=== PATIENT | female | born 1975 | race Caucasian/White ===

== ENCOUNTER 2025-08-12 12:45 | Outpatient (AMB) | payer OTHER, SELFPAY ==
[2025-08-12 13:00] VITALS: BMI 32.9
--- NOTE | 2025-08-12 13:00 | A.PHYSOV_ITS ---
Vital Signs 08/12/25 13:00 Height 5 ft 7 in Weight 210 lb BMI 32.9 Intake Visit Reasons: eval for hip injection Intake Note: Patient is a 49 year old female here today for right hip pain. Still Cleaner Required: No Allergies Seasonal Allergies Allergy (Unknown, Verified 08/12/25 12:59) Unknown HPI Comments Details: History of Present Illness The patient is a 49 year old female presenting for follow-up of recurrent right hip pain. She received a right hip injection in January which provided 90% reduction relief for approximately 3-4 months, but the pain has since returned. Her x-rays indicate mild arthritis of the hip. Patient has been performing her physician directed home exercise plan and using her medications as prescribed. Pain Description - Location: The patient reports pain in her right hip. - Radiation: The pain radiates slightly into the posterior thigh. - Quality: The pain is the same as what she experienced previously. - Severity: She rates her current pain as an 8 on a 0-10 scale. - Functional Impact: The patient reports she can still function in her daily life, but some activities are a struggle. - Relieving Factors: A previous hip injection in January provided relief for 3-4 months. Results - Imaging: X-ray of the hip shows mild arthritis. PFS Surgical History H/O: knee surgery Social History Alcohol intake: current Alcohol intake frequency: holidays/special occasions only Patient Tobacco Use Status: Never used Tobacco Use of substances other than those prescribed or required for medical reasons: No Current occupational status: employed Review of Systems Narrative Review of Systems - Musculoskeletal: Reports right hip pain with some radiation to the posterior thigh. Physical Exam Exam Exam: Physical Exam Lumbar Spine: Examination of her lumbar spine, there is no visible swelling or deformity. She is nontender to palpation. Full range of motion. Special Tests: Lhermittes sign was negative Heel Toe walk is normal Left straight leg raise: Negative Right straight leg raise: Negative Special tests Suzanne test is negative Ganslen's test is negative SI Joint compression test negative Reg test negative Piriformis stretch is negative Lower Extremities: Limited range of motion in external hip rotation as well as abduction, reproducible with pain. Neuro: Sensation: Intact to lower extremities bilaterally Strength L2 (Psoas): 5/5 on the left and 5/5 on the right. L3 (Quads): 5/5 on the left and 5/5 on the right. L4 (Ant tibialis): 5/5 on the left and 5/5 on the right. L5 (EHL) 5/5 on the left and 5/5 on the right. S1 (Gastroc): 5/5 on the left and 5/5 on the right. DTR L4: (Patellar) Left 2 Right 2 S1: (Achilles) Left 2 Right 2 Babinski Downgoing No pathologic clonus. No involuntary movement. Vital Signs: BMI result Body Mass Index 32.9 Assessment & Plan Assessment & Plan (1) Osteoarthritis of right hip: Code(s): M16.11 - Unilateral primary osteoarthritis, right hip Category: Medical Qualifiers: Osteoarthritis type: primary Qualified Code(s): M16.11 - Unilateral primary osteoarthritis, right hip Plan Pain Management - Analgesia: The patient's pain is currently an 8 out of 10. - Analgesia: A previous hip injection provided 3-4 months of relief. - Activities of Daily Living: The patient reports she can still function with d aily activities, though some are a struggle. Plan Patient was informed and verbally consented to the use of an ambient scribe for clinic note documentation during this visit. 1. Right Hip Pain The patient's right hip pain has returned after a previous injection in January provided relief for 3-4 months. Her current pain is 8/10, and while x-rays show mild arthritis, it is suspected that the condition may be more advanced than imaging suggests. The plan is to repeat the right hip injection, which the patient is agreeable to. An order will be placed for the injection to be performed by Dr. Walsh, and the office will handle insurance authorization. A discussion was had regarding a future MRI if injections become ineffective, but this will be held off on as long as the injections provide reasonable pain control. A follow-up visit will be scheduled for 3 weeks post-procedure, which the patient can cancel if she is feeling 80-90% better. Discussion Notes I discussed with the patient that her right hip pain has returned following her last injection in January, which gave her 3-4 months of good relief. I explained that while her x-rays show only mild arthritis, I suspect the condition may be more advanced. We agreed to repeat the right hip injection, as it was effective previously. I explained the possibility of needing an MRI in the future if the injections stop working, which would be to evaluate for surgery, such as a hip replacement. However, I advised that as long as the injections provide reasonable pain control, we can defer the MRI. I informed her that my office will place the order for the injection, obtain insurance authorization, and then she will be contacted to schedule the procedure. I also explained that a follow-up visit will be scheduled for three weeks after the procedure, but she can cancel it if she is feeling significantly better to avoid an unnecessary appointment. The patient understood the plan and confirmed the risks were the same as her previo us injection, stating she had no further questions. Patient Instructions - We will schedule you for another injection in your right hip to help manage your pain. - Our office will contact your insurance company for approval and then call you to set up the appointment for your injection. - You will have a follow-up appointment scheduled for three weeks after your injection. - If your pain is almost completely gone (80-90% better) after the injection, you can call our office to cancel this follow-up appointment. - We may consider getting an MRI scan of your hip in the future if the injections no longer provide relief. Coding Level of Care Code Est Pt Level 3 (58029) Diagnoses Primary osteoarthritis of right hip M16.11 Osteoarthritis type: primary
--- OUTSIDE RECORDS SUMMARY | 2025-08-12 14:21 | XMS_ITS | Clinical Summary ---
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 - Oral Active ARIPiprazole (ABILIFY) 15 mg tablet Take 1 Tablet by mouth daily. - Oral Active sertraline (ZOLOFT) 50 mg tablet Take 1 Tablet by mouth daily. - Oral Active cloNIDine (CATAPRES) 0.1 mg tablet Take 1 Tablet by mouth 2 times daily as needed. - Oral Active norgestimate-eth inyl estradioL (Estarylla) 0.25-0.035 mg per tablet TAKE 1 TABLET BY MOUTH 1 TIME EACH DAY 28 tablet 12 04/24/2025 Active Active Problems Problem Noted Date Diagnosed Date Rhinitis, allergic 06/23/2024 Major depression with psychotic features 024 Anxiety 06/23/2024 Seasonal allergies 06/23/2024 Obesity (BMI 30-39.9) 06/23/2024 Breast cyst 06/23/2024 Immunizations Immunization Administration Dates Next Due Influenza trivalent, with pr eservative (Fluzone; Afluria) 6mo and older 07/18/2021 Influenza, live, intranasal, trivalent (FluMist) 2yo to less than 50yo 05/30/2016,06/19/2014 Moderna SARS-CoV-2 COVID-19, mRNA, LNP-S, preservative free 07/18/2021,01/05/2021,12/08/2020 Tdap Tetanus diptheria acell ular pertussis (Boostrix; Adacel) 7yo and older 09/01/2014 Surgical History Surgery Date Site/Laterality Comments KNEE SURGERY Left PROCEDURE: HISTORICAL KNEE SURGERY; COMMENT: 2 procedures on left, 1 on right COLONOSCOPY 09/04/2016 PROCEDURE: HISTORICAL COLONOSCOPY; COMMENT: Dr. [email or web address]; normal examination. BREAST BIOPSY 2019 Left PROCEDURE: BX BREAST; PERC NEEDLE CORE W/IMAG GUID; COMMENT: lt breast bx-benign Medical History Medical History Date Comments Allergic rhinitis, cause unspecified 04/30/2007 DX:Allergic rhinitis, cause unspecified Family History Medical History Relation Name Comments Other: Other Father mental health i ssues Brain cancer Maternal Grandmother Other: Other Mother heart problems Brain cancer Other maternal side o f the family Other: heart problem Paternal Grandfather Breast cancer Neg Hx Cervical cancer Neg Hx Diabetes Neg Hx Heart attack Neg Hx Ovarian cancer Neg Hx Uterine cancer Neg Hx Relation Name Status Comments Brother 1 Alive Brother 2 Alive Brother 3 Alive Daughter Alive Father Alive Maternal Grandfather Maternal Grandmother Mother Alive Other Paternal Grandfather Paternal Grandmother Sister 1 Alive Sister 2 Alive Sister 3 Alive Son Alive Social History Tobacco Use Types Packs/Day Years Used Date Smoking Tobacco: Former Cigarettes 0 Q uit: 04/21/2016 Smokeless Tobacco: Former Tobacco Cessation:Counseling Given: Not Answered Alcohol Use Standard Drinks/Week Comments Yes 2 (1 standard drink = 0.6 oz pur e alcohol) Housing Instability Answer Date Recorde d Are you worried that in the next 2 months you may not have stable housing? No 04/23/2025 Food Access & Nutrition Answer Date Rec orded Do you have access to a vari ety of food including fruits and vegetables? Yes 04/23/2025 Access to Healthcare Answer Date Record ed Within the last 3 months, ho darek many times did you visit the emergency department for your medical care? 0 04/23/2025 Health Literacy Answer Date Recorded How often do you need to hav e someone help you when you read instructions, pamphlets, or other written material from your doctor or pharmacy? Never 04/23/2025 Caregiver: How often do you need to have someone help you when you read instructions, pamphlets, or other written material from your doctor or pharmacy? Not on file 04/23/2025 Financial Risk Answer Date Recorded How hard is it for you to pa y for the very basics like food, housing, medical care, and air conditioning / heating? Somewhat hard 04/23/2025 Transportation Answer Date Recorded Has the lack of transportati on kept you from meetings, work, or from getting things needed for daily living? No Has the lack of transportati on kept you from medical appointments or from getting medications? No 04/23/2025 Social Isolation Answer Date Recorded How often do you feel lonely or isolated from th ose around you? Never 04/23/2025 Food Risk Answer Date Recorded Within the past 12 months we worried whether our food would run out before we got money to buy more. Never true 04/23/2025 Within the past 12 months th e food we bought just didn't last and we didn't have money to get more. Never true 04/23/2025 Dependent Care Answer Date Recorded Do you need help finding or paying for care for your loved ones. For example, child welfare worker or elderly care for an older adult? No 04/23/2025 Education Answer Date Recorded Do you think completing more education or training, like finishing a GED, going to college, or learning a trade, would be helpful for you? No 04/23/2025 Employment and Income Answer Date Recor ded During the last four weeks, have you been actively looking for work? No 04/23/2025 Living Situation Answer Date Recorded What is your living situation? Unrecognized valu e 04/23/2025 Comments No Sex and Gender Information Value Date Recorded Sex Assigned at Not on file Legal Sex Female 2:09 AM EST Gender Identity Not on file Sexual Orientation Not on file Obstetrics History Para Term AB IAB SAB Ectopic Multiple Livin g Live Births 2 2 2 2 Date Outcome GA Total Labor Labor/2nd/3rd Weight Sex Type Anes PTL Cristiana A1 A5 Name Clin Term Term Last Filed Vital Signs Vital Sign Reading Time Taken Comments Blood Pressure 118/67 04/24/2025 2:24 PM EDT Pulse 83 04/24/2025 2:24 PM EDT Temperature - - Respiratory Rate 16 06/24/2024 3:19 PM EST Oxygen Saturation - - Inhaled Oxygen Concentration - - Weight 97.1 kg (214 lb) 04/24/2025 2:24 PM EDT Height 172.7 cm (5' 8 ) 04/24/2025 2:24 PM EDT Body Mass Index 32.54 04/24/2025 2:24 PM EDT Plan of Treatment Health Maintenance Due Date Last Done Comments Hepatitis B Vaccines (1 of 3 - 19+ 3-dose series) 1992 Zoster Vaccines (1 of 2) 1992 HIV Screening 07/22/2022 Pneumococcal Vaccine: 50+ Years (1 of 1 - PCV) 2023 DTaP,Tdap,and Td Vaccines (2 - Td or Tdap) 09/01/2024 09/01/2014 COVID-19 Vaccine ( - season) 2025 07/18/2021, 01/05/2021, 12/08/2020 Influenza Vaccine (#1) 2025 , 05/30/2016, 06/19/2014 Social Influencers of Health Screening 04/23/2026 04/23/2025 Colorectal Cancer Screening: Colonoscopy 09/04/2026 09/04/2016 Breast Cancer Screening 03/16/2027 03/16/20 25, 03/07/2024, 03/07/2024, Additional history exists Cholesterol Screening (Lipid Panel) 04/23/2029 04/23/2024, 04/23/2024 Cervical Cancer Screening: HPV 04/24/2030 04/24/2025, 05/17/2020 RSV Immunization Adult Patients (1 - 1-dose 75+ series) 2048 Hepatitis C Screening Completed 04/23/2024 Depression Screening Completed 04/23/2025, 04/08/20 24 HIB Vaccines Aged Out No longer eligi ble based on patient's age to complete this topic HPV Vaccines Aged Out No longer eligi ble based on patient's age to complete this topic Hepatitis A Vaccines Aged Out No long er eligible based on patient's age to complete this topic IPV Vaccines Aged Out No longer eligi ble based on patient's age to complete this topic MMR Vaccines Aged Out No longer eligi ble based on patient's age to complete this topic Meningococcal ACWY Vaccine Aged Out N o longer eligible based on patient's age to complete this topic Meningococcal B Vaccine Aged Out No l onger eligible based on patient's age to complete this topic RSV Immunization Patients Under 20 months Aged Out No longer eligible based on patient's age to complete this topic Varicella Vaccines Aged Out No longer eligible based on patient's age to complete this topic Procedures Procedure Name Priority Date/Time Associated Diagnosis Comments HPV WITH REFLEX GENOTYPE Routine 04/24/2025 2:38 PM EDT Cervical cancer screening MG MAMMO DIGITAL SCREENING W FER BILAT Routine 03/16/2025 8:37 AM EDT Encounter for screening mammogram for breast cancer HEPATITIS C SCREENING Routine 04/23/2024 LIPID PANEL Routine 04/23/2024 DEPRESSION SCREENING Routine 04/08/2024 COLONOSCOPY Routine 09/04/2016 from Last 3 Months or Most Recently Relevant to Health Maintenance Results * HPV with reflex genotype (04/24/2025 2:38 PM EDT) HPV Negative Negative LAB MICROBIOLOGY METHOD 04/30/2025 2:40 PM EDT [facility] Brushing/Spatula Cervix uteri structure / Unknown 04/24/2025 2:38 PM EDT 04/27/2025 6:39 AM EDT us [facility] MOLECULAR DIAGNOSTICS OR DERABLES Final Result [facility] [address] [place] [address], [place] [phone] * MG Mammo Digital Screening w Fer bilat (03/16/2025 8:37 AM EDT) Anatomical Region Laterality Modality Breast Bilateral Mammography 03/17/2025 5:28 PM EDT Impressions 03/17/2025 5:36 PM EDT 1. No mammographic evidence of malignancy 2. Heterogeneous breast parenchyma BI-RADS CATEGORY: 2 - BENIGN RECOMMENDATION: Screening bilateral mammogram is recommended in 1 year. Mammo Location: [facility], [address] [place] [address], [id number], . -------- FINAL REPORT -------- Dictated By: Joslyn Barrios Dictated Date: 03/17/2025 17:28 ET Assigned Physician: Joslyn Barrios Reviewed and Electronically Signed By: Joslyn Barrios Signed Date: 03/17/2025 17:36 ET Workstation ID: [id number] Transcribed By: Self Edit Transcribed Date: 03/17/2025 17:28 ET Narrative 03/17/2025 5:36 PM EDT A BILATERAL DIGITAL 3D SCREENING MAMMOGRAPHY HISTORY: Routine screening. No family history of breast cancer. COMPARISON: Multiple priors dating back to 06/10/2020 Technique: Bilateral full field digital mammography (3D) was performed using standard CC and MLO projections CAD was used to evaluate this mammogram. FINDINGS: Right: No suspicious masses, groups of microcalcification or areas of architectural distortion identified. Stable typically benign parenchymal asymmetries. Left: No suspicious masses, groups of microcalcification or areas of architectural distortion identified. Stable typically benign parenchymal asymmetries. Medial breast biopsy marker. BREAST DENSITY: C - The breasts are heterogeneously dense which may obscure small masses. Procedure Note Joslyn Barrios MD - 03/17/2025 A BILATERAL DIGITAL 3D SCREENING MAMMOGRAPHY HISTORY: Routine screening. No family history of breast cancer. COMPARISON: Multiple priors dating back to 06/10/2020 Technique: Bilateral full field digital mammography (3D) was performedusing standard CC and MLO projections CAD was used to evaluate this mammogram. FINDINGS: Right: No suspicious masses, groups of microcalcification or areas ofarchitectural distortion identified. Stable typically benign parenchymalasymmetries. Left: No suspicious masses, groups of microcalcification or areas ofarchitectural distortion identified. Stable typically benign parenchymalasymmetries. Medial breast biopsy marker. BREAST DENSITY: C - The breasts are heterogeneously dense which mayobscure small masses. IMPRESSION: 1. No mammographic evidence of malignancy 2. Heterogeneous breast parenchyma BI-RADS CATEGORY: 2 - BENIGN RECOMMENDATION: Screening bilateral mammogram is recommended in 1 year. Mammo Location: [facility], [address] [place] [address], [id number], . -------- FINAL REPORT -------- Dictated By: Joslyn Barrios Dictated Date: 03/17/2025 17:28 ET Assigned Physician: Joslyn Barrios Reviewed and Electronically Signed By: Joslyn Barrios Signed Date: 03/17/2025 17:36 ET Workstation ID: [id number] Transcribed By: Self Edit Transcribed Date: 03/17/2025 17:28 ET Connor Acharya MD IMG BI PROCEDURES Sumi l Result * Hepatitis C Screening (04/23/2024) [facility] Hepatitis C Screening abstracted Historical Provider HEALTH MAINTENANCE Final Result * Lipid panel (04/23/2024) [facility] LDL/HDL Ratio 2 0 - 4 Triglycerides 110 0 - 150 mg/dL Cholesterol 160 0 - 200 mg/dL HDL 76 >=40 mg/dL LDL Cholesterol 62 0 - 100 mg/dL Blood Venous blood specimen / Unknown Historical Provider LAB BLOOD ORDERABLES Sumi l Result * Depression Screening (04/08/2024) [facility] Depression Screening abstracted Historical Provider HEALTH MAINTENANCE Final Result * Colonoscopy (09/04/2016) [facility] Colonoscopy no interpretation , abstracted Anatomical Region Laterality Modality Other Historical Provider HEALTH MAINTENANCE Final Result from Last 3 Months or Most Recently Relevant to Health Maintenance Insurance [employer] Care Teams Electrical Construction Project Manager Relationship Specialty Start Date End Date Connor Acharya MD [address], [place] PCP - General 12/01/22
== END 2025-08-12 13:02 | disposition home or self-care (01) ==
LOC: HO.HPHYS 12:46
PROVIDERS: PCP Internal Medicine; Visit Provider Physician Assistant
DX: M16.11 Unilateral primary osteoarthritis, right hip (principal)
CPT/HCPCS: 99213